=== PATIENT | male | born 1990 | race Caucasian/White ===

== ENCOUNTER 2019-12-26 17:47 | Emergency (ER) | payer OTHER ==
[2019-12-26] MEDS ORDERED: CEFAZOLIN 1 GM VIAL ONE (18:04)
[2019-12-26] MEDS ORDERED: Adacel (T-DAP) 0.5 ML SYRINGE ONE (18:04)
[2019-12-26] MEDS ORDERED: Morphine 10 MG/ML VIAL ONE (18:04)
--- NOTE | 2019-12-26 18:30 | RAD ---
XR Chest 1 View Portable History: Trauma Comparison: None. Findings: The lungs are clear. No pneumothorax. No effusion. There is be a possible tendon suture anc hor of the right humeral neck. No acute displaced rib fracture. Possible left nondisplaced distal clavicular fracture. Impression: 1. Concern for nondisplaced left distal clavicular fracture extending from the expected location of t he coracoclavicular ligaments to the acromioclavicular joint. 2. Likely tendon suture anchor right humeral neck. 3. Clear lungs.
[2019-12-26] MEDS ORDERED: Lorazepam 2 MG/ML VIAL ONE (19:26)
[2019-12-26] MEDS ORDERED: Silver Sulfadiazine 50 GM TUBE ONE (21:00)
[2019-12-26] MEDS ORDERED: Morphine 4 MG/ML VIAL ONE (22:04)
== END 2019-12-26 22:37 | disposition short-term general hospital (02) ==
LOC: ERS 17:47
DX: T24.312A Burn of third degree of left thigh, initial encounter (principal); T24.311A Burn of third degree of right thigh, initial encounter; T21.22XA Burn of second degree of abdominal wall, initial encounter; T20.24XA Burn of second degree of nose (septum), initial encounter
CPT/HCPCS: 16020; 71045; 90471; 90715; 96365; 96375; 96376; G0390; J0690; J2060; J2270